=== PATIENT | male | born 1970 | race Caucasian/White ===

== ENCOUNTER 2020-06-18 15:00 | Outpatient (RCR) | payer BC, SELFPAY ==
[2020-05-30 13:49] VITALS: BP 132/80; PULSE 66; RESP 16; TEMP 36.6; O2SAT 98
[2020-05-30 14:09] VITALS: PULSE 76
== END 2020-06-23 15:15 | disposition home or self-care (01) ==
LOC: ANHCPREHAB 15:00
PROVIDERS: PCP Family Medicine; Visit Provider Internal Medicine Cardiovascular Disease
DX: I25.2 Old myocardial infarction (principal)
CPT/HCPCS: 93798